=== PATIENT | female | born 2000 | race Caucasian/White ===

== ENCOUNTER 2021-01-29 09:48 | Emergency (ER) | payer OTHER ==
[~2021-01-29] VITALS: Ht 162.6 cm; Wt 70.0 kg
--- NOTE | 2021-01-29 10:29 | REP ---
INDICATION: rib pain COMPARISON: None. TECHNIQUE: PA/Lateral FINDINGS: Lungs: Clear, no infiltrate. Heart: Normal in size. Mediastinum: Mediastinal silhouette unremarkable. Pleural angles: Unremarkable.. Bones and soft tissues: Unremarkable. IMPRESSION: No acute pulmonary disease. <Electronically signed by Mark Prabhakar > 01/29/21 1020
[2021-01-29] MEDS ORDERED: GI COCKTAIL 50ML BTL(HYOSCYAMINE/MAALOX/LIDOCAINE VISCOUS)(1:3:1) PO ONE (11:35)
[2021-01-29 12:27] VITALS: O2SAT 100
[2021-01-29 12:29] LABS: BASO # 0.1 10^3/uL (0.0-0.2); BASO % 0.9 % (0.0-1.0); EOS # 0.3 10^3/uL (0.0-0.5); EOS % 3.6 % (0.0-3.0); HEMATOCRIT 37.6 % (36.0-47.0); HEMOGLOBIN 11.9 g/dl (12.0-15.5); LYMPH # 1.9 10^3/uL (1.5-5.0); LYMPH % 26.3 % (24.0-44.0); MEAN CORPUSCULAR HEMOGLOBIN 27.7 pg (27.0-33.0); MEAN CORPUSCULAR HGB CONC 31.6 g/dl (32.0-36.5); MEAN CORPUSCULAR VOLUME 87.4 fl (80.0-96.0); MONO # 0.6 10^3/uL (0.0-0.8); NEUTROPHILS # 4.3 10^3/uL (1.5-8.5); NEUTROPHILS % 60.9 % (36.0-66.0); PLATELET COUNT, AUTOMATED 281 10^3/uL (150-450)
--- NOTE | 2021-01-29 12:47 | REP ---
INDICATION: RUQ TTP, positive Bello sign. COMPARISON: None. TECHNIQUE: Real-time sonographic evaluation of right upper quadrant performed. FINDINGS: The gallbladder demonstrates no evidence of intraluminal sludge or calculi, wall thickening or pericholecystic fluid. There is no intrahepatic or extrahepatic biliary dilatation, common bile duct measures 3 mm in maximum diameter. The liver demonstrates homogeneous echotexture with no gross mass. The pancreas demonstrates homogeneous echotexture with no gross mass. The right kidney demonstrates no hydronephrosis, with a normal size of 11.1 cm in length. No free fluid is seen. IMPRESSION: Negative right upper quadrant ultrasound. <Electronically signed by Mark Prabhakar > 01/29/21 [id number]
[2021-01-29 13:00] LABS: ALBUMIN 4.2 GM/DL (3.2-5.2); ALT/SGPT 14 U/L (12-78); BILIRUBIN,DIRECT 0.2 MG/DL (0.0-0.2); BILIRUBIN,TOTAL 0.6 MG/DL (0.2-1.0); CK-MB VALUE MASS < 1.0 NG/ML (<3.6); CPK CREATINE PHOSPHOKINASE 139 U/L (26-192); LIPASE 44 U/L (73-393); MB/CK RELATIVE INDEX 0.72 (< OR =4); TOTAL PROTEIN 7.1 GM/DL (6.4-8.2); TROPONIN I < 0.02 NG/ML (< 0.10)
[2021-01-29 15:31] LABS: CK-MB VALUE MASS < 1.0 NG/ML (<3.6); CPK CREATINE PHOSPHOKINASE 123 U/L (26-192); MB/CK RELATIVE INDEX 0.81 (< OR =4); TROPONIN I < 0.02 NG/ML (< 0.10)
[2021-01-29] MEDS ORDERED: MEDR4PAK PO (15:40)
[2021-01-29 15:53] VITALS: BP 153/69
--- NOTE | 2021-01-29 20:04 | ECGEPIP ---
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
== END 2021-01-29 15:56 | disposition home or self-care (01) ==
LOC: M ED 09:48
DX: R07.89 Other chest pain (principal)

== ENCOUNTER 2021-04-20 17:38 | Emergency (ER) | payer OTHER ==
[~2021-04-20] VITALS: Ht 162.6 cm; Wt 74.9 kg
[~2021-04-20 17:38] MED LIST: MEDR4PAK PO
[2021-04-20 18:52] LABS: HEMATOCRIT 39.8 % (36.0-47.0); MEAN CORPUSCULAR HEMOGLOBIN 28.8 pg (27.0-33.0); MEAN CORPUSCULAR HGB CONC 32.7 g/dl (32.0-36.5); MEAN CORPUSCULAR VOLUME 88.1 fl (80.0-96.0); PLATELET COUNT, AUTOMATED 321 10^3/uL (150-450); RED BLOOD COUNT 4.52 10^6/uL (4.00-5.40); WHITE BLOOD COUNT 9.4 10^3/uL (4.0-10.0)
[2021-04-20 19:14] LABS: AMPHETAMINES LEVEL URINE NEGATIVE (NEGATIVE); BARBITURATES URINE NEGATIVE (NEGATIVE); BENZODIAZEPINES URINE NEGATIVE (NEGATIVE); CANNABINOIDS URINE NEGATIVE (NEGATIVE); COCAINE METABOLITE URINE NEGATIVE (NEGATIVE); HCG, SERUM QUALITATIVE NEGATIVE (NEGATIVE); METHADONE URINE NEGATIVE (NEGATIVE); OPIATES URINE NEGATIVE (NEGATIVE); PHENCYCLIDINE URINE NEGATIVE (NEGATIVE)
[2021-04-20 19:26] LABS: ACETAMINOPHEN LEVEL < 2.0 UG/ML (10.0-30.0); ALBUMIN 4.1 GM/DL (3.2-5.2); ALT/SGPT 14 U/L (12-78); BILIRUBIN,DIRECT 0.2 MG/DL (0.0-0.2); BILIRUBIN,TOTAL 0.6 MG/DL (0.2-1.0); BLOOD UREA NITROGEN 12 MG/DL (7-18); CALCIUM LEVEL 9.4 MG/DL (8.5-10.1); CARBON DIOXIDE LEVEL 29 MEQ/L (21-32); CHLORIDE LEVEL 108 MEQ/L (98-107); CREATININE FOR GFR 0.72 MG/DL (0.55-1.30); ETHYL ALCOHOL (ETHANOL) < 0.003 % (0.000-0.010); GLUCOSE, FASTING 93 MG/DL (70-100); POTASSIUM SERUM 4.9 MEQ/L (3.5-5.1); SALICYLATE LEVEL < 1.7 MG/DL (5.0-30.0); SODIUM LEVEL 141 MEQ/L (136-145); THYROID STIMULATING HORMONE 0.615 uIU/ML (0.463-3.98); TOTAL PROTEIN 7.3 GM/DL (6.4-8.2)
[2021-04-20 20:44] LABS: RSV AMPLIFICATION NEGATIVE (NEGATIVE)
[2021-04-20] MEDS ORDERED: HOME MED LIST COMPLETE! XX SCH (22:25)
--- NOTE | 2021-04-21 00:08 | MHIPNPDOC ---
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 Communicated with PSA meets criteria for admission at this time. Vital Signs Vital Signs Date Time Temp Pulse Resp B/P (MAP) Pulse Ox O2 Delivery O2 Flow Rate FiO2 04/20/21 20:22 97.0 65 14 122/65 (84) 99 Room Air Laboratory Data 24H Labs Laboratory Tests 2 04/20/21 18:31: Nucleated Red Blood Cells % (auto) 0.0, Anion Gap 4L, Calcium Level 9.4, Total Bilirubin 0.6, Direct Bilirubin 0.2, Aspartate Amino Transf (AST/SGOT) 8, Alanine Aminotransferase (ALT/SGPT) 14, Alkaline Phosphatase 80, Total Protein 7.3, Albumin 4.1, Albumin/Globulin Ratio 1.3, Thyroid Stimulating Hormone (TSH) 0.615, Human Chorionic Gonadotropin, Qual NEGATIVE, Salicylates Level < 1.7L, Urine Opiates Screen NEGATIVE, Urine Methadone Screen NEGATIVE, Acetaminophen Level < 2.0L, Urine Barbiturates Screen NEGATIVE, Urine Phencyclidine Screen NEGATIVE, Urine Amphetamines Screen NEGATIVE, Urine Benzodiazepines Screen NEGATIVE, Urine Cocaine Metabolite Screen NEGATIVE, Urine Cannabinoids Screen NEGATIVE, Ethyl Alcohol Level < 0.003 04/20/21 19:52: Coronavirus (COVID-19)(PCR) NEGATIVE, Influenza Type A (RT-PCR) NEGATIVE, Influenza Type B (RT-PCR) NEGATIVE, Respiratory Syncytial Virus (PCR) NEGATIVE CBC/BMP Laboratory Tests 04/20/21 18:31 Current Medications Current Medications Medications (Trade) Dose Ordered Sig/Kanu Route PRN Reason Start Time Stop Time Status Last Admin Dose Admin Home Med (Home Med List Complete!) ASDIRECTED XX 04/20/21 22:25 04/20/21 22:26 DC Allergies Coded Allergies: No Known Allergies (Unverified , 01/29/21) KINSEY JIM MD Apr 21, 2021 00:08
--- NOTE | 2021-04-21 05:09 | ECGEPIP ---
[facility] - ED Test Date: 2021-04-20 Pat Name: MARIA GUADALUPE BONILLA Department: Room: - Gender: Female Clipper Machine: : 2000 Requested By: CADY ALMANZAR Order Number: [id number] Reading MD: Lonnie Dobbs Measurements Intervals [place] Rate: 72 P: 5 GA: 138 QRS: 38 QRSD: 84 T: 25 QT: 384 QTc: 420 Interpretive Statements Normal sinus rhythm POOR R WAVE PROGRESSION NONSPECIFIC T WAVE ABNORMALITY(S) SIMILAR TO 01/29/21 Electronically Signed on 04-21-2021 5:09:26 EDT by Lonnie Dobbs
[2021-04-21 09:31] VITALS: BP 159/89
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
== END 2021-04-21 09:32 | disposition home or self-care (01) ==
LOC: M ED 17:38
DX: F32.9 Major depressive disorder, single episode, unspecified (principal)

== ENCOUNTER 2021-05-03 08:24 | Emergency (ER) | payer OTHER ==
[~2021-05-03] VITALS: Ht 162.6 cm; Wt 71.2 kg
[2021-05-03] MEDS ORDERED: NITR1CAP11 PO (09:32)
[2021-05-03 09:43] VITALS: BP 134/78
== END 2021-05-03 09:50 | disposition home or self-care (01) ==
LOC: M ED 08:24
DX: N39.0 Urinary tract infection, site not specified (principal)

== ENCOUNTER 2021-05-24 12:29 | Emergency (ER) | payer OTHER ==
[~2021-05-24] VITALS: Ht 162.6 cm; Wt 73.1 kg
[~2021-05-24 12:29] MED LIST changes: +NITR1CAP11 PO
[2021-05-24 13:14] LABS: BASO % 0.4 % (0.0-1.0); EOS # 0.1 10^3/uL (0.0-0.5); EOS % 0.8 % (0.0-3.0); HEMATOCRIT 43.6 % (36.0-47.0); LYMPH # 1.5 10^3/uL (1.5-5.0); MEAN CORPUSCULAR HGB CONC 32.1 g/dl (32.0-36.5); MEAN CORPUSCULAR VOLUME 90.5 fl (80.0-96.0); MONO # 0.7 10^3/uL (0.0-0.8); MONO % 7.8 % (2.0-8.0); NEUTROPHILS # 6.9 10^3/uL (1.5-8.5); NEUTROPHILS % 74.6 % (36.0-66.0); PLATELET COUNT, AUTOMATED 337 10^3/uL (150-450); RED BLOOD COUNT 4.82 10^6/uL (4.00-5.40); WHITE BLOOD COUNT 9.2 10^3/uL (4.0-10.0)
[2021-05-24 13:51] LABS: ALBUMIN 4.7 GM/DL (3.2-5.2); BILIRUBIN,DIRECT 0.2 MG/DL (0.0-0.2); BILIRUBIN,TOTAL 0.9 MG/DL (0.2-1.0); TOTAL PROTEIN 7.6 GM/DL (6.4-8.2)
--- NOTE | 2021-05-24 14:09 | REP ---
INDICATION: right lower quadrant and pelvic pain. COMPARISON: None. TECHNIQUE: Standard helical technique without contrast stone protocol utilized due to right-sided pain FINDINGS: Lung bases are clear Limited evaluation of the solid intra-abdominal organs and gallbladder show no abnormalities. Limited evaluation of the pancreas, adrenal glands, and kidneys show no gross abnormalities. Limited evaluation of the abdominal aorta and para-aortic regions show no gross abnormality. There is no free fluid or free air. The bowel loops and the mesenteries are within normal limits. In the right adnexa there is a mixed density 3.1 cm sized structure. The osseous structures are within normal limits. IMPRESSION: Likely hemorrhagic right ovarian cyst as described above. <Electronically signed by Lul Wadsworth > 05/24/21 [id number]
[2021-05-24] MEDS ORDERED: IBUP-1022 PO (14:26)
[2021-05-24 14:36] VITALS: BP 159/87
== END 2021-05-24 14:38 | disposition home or self-care (01) ==
LOC: M ED 12:29
DX: N83.201 Unspecified ovarian cyst, right side (principal)

== ENCOUNTER 2021-06-29 12:15 | Emergency (ER) | payer OTHER ==
[~2021-06-29] VITALS: Ht 162.6 cm; Wt 78.5 kg
[~2021-06-29 12:15] MED LIST changes: +IBUP-1022 PO
[2021-06-29 12:16] VITALS: BP 143/84
== END 2021-06-29 16:45 | disposition left against medical advice (07) ==
LOC: M ED 12:15
DX: Z53.21 Procedure and treatment not carried out due to patient leaving prior to being seen by health care provider (principal)

== ENCOUNTER 2021-06-30 10:29 | Emergency (ER) | payer OTHER ==
[~2021-06-30] VITALS: Ht 162.6 cm; Wt 75.9 kg
--- OUTSIDE RECORDS SUMMARY | 2021-06-30 11:37 | CCD ---
Author Author [facility] Organization [facility] Address Unknown Phone Unavailable Care Team Providers Care Chipping Machine Operator Name Role Phone Green MEDIA MANAGER MEDIA MANAGER, Melissa Unavailable Unavailable Green MEDIA MANAGER MEDIA MANAGER, Melissa Unavailable Unavailable Green MEDIA MANAGER MEDIA MANAGER, Melissa Unavailable Unavailable Green MEDIA MANAGER MEDIA MANAGER, Melissa Unavailable Unavailable Green MEDIA MANAGER MEDIA MANAGER, Melissa Unavailable Unavailable Dwello PA PA, Inez Unavailable Unavailable Dwello PA PA, Inez Unavailable Unavailable Dwello PA PA, Inez Unavailable Unavailable Dwello PA PA, Inez Unavailable Unavailable Dwello PA PA, Inez Unavailable Unavailable Dwello PA PA, Inez Unavailable Unavailable Dwello PA PA, Inez Unavailable Unavailable Re-disclosure Warning The records that you are about to access may contain information from federally-assisted alcohol or drug abuse programs. If such information is present, then the following federally mandated warning applies: This information has been disclosed to you from records protected by federal confidentiality rules (42 CFR part 2). The federal rules prohibit you from making any further disclosure of this information unless further disclosure is expressly permitted by the written consent of the person to whom it pertains or as otherwise permitted by 42 CFR part 2. A general authorization for the release of medical or other information is NOT sufficient for this purpose. The Federal rules restrict any use of the information to criminally investigate or prosecute any alcohol or drug abuse patient.The records that you are about to access may contain highly sensitive health information, the redisclosure of which is protected by Article 27-F of the [place] State Public Health law. If you continue you may have access to information: Regarding HIV / AIDS; Provided by facilities licensed or operated by the [facility] Office of Mental Health; or Provided by the [facility] Office for People With Developmental Disabilities. If such information is present, then the following [facility] mandated warning applies: This information has been disclosed to you from confidential records which are protected by state law. State law prohibits you from making any further disclosure of this information without the specific written consent of the person to whom it pertains, or as otherwise permitted by law. Any unauthorized further disclosure in violation of state law may result in a fine or intermediate sentence or both. A general authorization for the release of medical or other information is NOT sufficient authorization for further disc losure. Encounters Encounter Providers Location Date Indications Data Source(s ) PREV VISIT, EST, AGE 18-39Outpatient Attender: Melissa Perez 06/19/2021 07:30:00 AM EDT - 06/19/2021 07:30:00 AM ED T Pelvic and perineal painOther sex counselingHuman immunodeficiency virus [HIV] counselingEncounter for screening for human immunodeficiency virusEncntr screen for infections w sexl mode of transmissEncntr for pulp roller exam (general) (routine) w abnormal findingsEncounter for oth general cnsl and advice on contraceptionEncounter for surveillance of injectable contraceptiveEncounter for test, result negative [facility] ([facility]) Pelvic and perineal pain Other sex counseling Human immunodeficiency virus [HIV] couns eling Encounter for screening for human immuno deficiency virus Encntr screen for infections w sexl mode of transmiss Encntr for pulp roller exam (general) (routine) w abnormal findings Encounter for oth general cnsl and advic e on contraception Encounter for surveillance of injectable contraceptive Encounter for test, result neg ative OutpatientOFFICE VISIT, NEW Attender: Inez bernalrtshine 05/28/2021 10:45:00 AM EDT - 05/28/2021 10:45:00 AM EDT Other sex counselingEncounter for initial prescription of injectable contracepEncounter for oth general cnsl and advice on contraceptionEncounter for test, result negative [facility] ([facility]) Other sex counseling Encounter for initial prescription of in jectable contracep Encounter for oth general cnsl and advic e on contraception Encounter for test, result neg ative Medications Medication Brand Name Start Date Product Form Dose Route Admi nistrative Instructions Pharmacy Instructions Status Indications Reaction Description Data Source(s) medroxyprogesterone acetate 150 MG/ML In jectable Suspension medroxyprogesterone 150 mg/mL intramuscular suspension medroxyprogesterone 150 mg/mL intramuscu lar suspension 05/28/2021 12:00:00 AM EDT active IM every 10-13 weeks [facility] ([facility]) Insurance Providers Payer name Policy type / Coverage type Policy ID Covered green party ID Covered green party's relationship to hinojosa Policy Hinojosa Plan Information [facility] [employer] [id number] Problems, Conditions, and Diagnoses No Information Surgeries/Procedures Procedure Description Date Indications Data Source(s) CVR Immigration Patrol Inspector.Svc. STI / H 06/19/2021 12:00:00 AM EDT - 06/19/2021 12:00:00 AM EDT [facility] ([facility]) CVR Immigration Patrol Inspector.Svc. Contraceptive 06/19/2021 12 :00:00 AM EDT - 06/19/2021 12:00:00 AM EDT [facility] ([facility]) CVR Med.Svc. Height/Weight 06/19/2021 12 :00:00 AM EDT - 06/19/2021 12:00:00 AM EDT [facility] ([facility]) CVR Blood Pressure 06/19/2021 12:00:00 AM EDT - 2020 12:00:00 AM EDT [facility] ([facility]) CVR Med.Svc. Other 06/19/2021 12:00:00 AM EDT - 2020 12:00:00 AM EDT [facility] ([facility]) SYPHILLIS BLOOD SEROLOGY, QUALITATIVE 12:00:00 AM EDT - 06/19/2021 12:00:00 AM EDT [facility] ([facility]) HTLV/HIV SERUM TEST 06/19/2021 12:00:00 AM EDT - 06/19 12:00:00 AM EDT [facility] ([facility]) N.GONORRHOEAE, URINE 06/19/2021 12:00:00 AM EDT - 06/19/2021 12:00:00 AM EDT [facility] ([facility]) CHYLMD TRACH, URINE 06/19/2021 12:00:00 AM EDT - 06/19 12:00:00 AM EDT [facility] ([facility]) PREV VISIT, EST, AGE 18-39 06/19/2021 12 :00:00 AM EDT - 06/19/2021 12:00:00 AM EDT [facility] ([facility]) URINE TEST 06/19/2021 12:00:00 AM EDT - 06/19/2021 12:00:00 AM EDT [facility] ([facility]) NURSE ONLY INJ. RN/CAN FILLING ROOM SWEEPER Only 05/28/2021 1 2:00:00 AM EDT - 05/28/2021 12:00:00 AM EDT [facility] ([facility]) Depo/Medroxyprogesterone Inj. 150 Mg Nurse/CA 05/28/2021 12:00:00 AM EDT - 05/28/2021 12:00:00 AM EDT [facility] ([facility]) CVR Immigration Patrol Inspector.Svc. STI / H 05/28/2021 12:00:00 AM EDT - 05/28/2021 12:00:00 AM EDT [facility] ([facility]) CVR Immigration Patrol Inspector.Svc. Contraceptive 05/28/2021 12 :00:00 AM EDT - 05/28/2021 12:00:00 AM EDT [facility] ([facility]) CVR Med.Svc. Method Initiation 12:00:00 AM EDT - 05/28/2021 12:00:00 AM EDT [facility] ([facility]) CVR Med.Svc. Height/Weight 05/28/2021 12 :00:00 AM EDT - 05/28/2021 12:00:00 AM EDT [facility] ([facility]) CVR Blood Pressure 05/28/2021 12:00:00 AM EDT - 2020 12:00:00 AM EDT [facility] ([facility]) URINE TEST 05/28/2021 12:00:00 AM EDT - 05/28/2021 12:00:00 AM EDT [facility] ([facility]) OFFICE VISIT, NEW 05/28/2021 12:00:00 AM EDT - 021 12:00:00 AM EDT [facility] ([facility]) Results ID Date Data Source [id number] 06/19/2021 07:46:51 AM EDT [facility] ([facility]) Name Value Range Interpretation Code Description Data Edith rce(s) Supporting Document(s) NegativeLot: [id number] High Sensiti vity Urine Test [facility] ([facility]) ID Date Data Source [id number] 05/28/2021 11:35:50 AM EDT [facility] ([facility]) Name Value Range Interpretation Code Description Data Edith rce(s) Supporting Document(s) NegativeLot: [id number]: 10/26/2022 High Sensitivity Urine Test [facility] ([facility]) ID Date Data Source [id number] 04/20/2021 07:52:00 PM EDT [facility] Name Value Range Interpretation Code Description Data Edith rce(s) Supporting Document(s) SARS coronavirus 2 RNA [Presence] in Res piratory specimen by ALLYSON with probe detection NEGATIVE [facility] This lab was ordered by [facility] a nd reported by [facility]. ID Date Data Source [id number] 04/14/2021 12:00:00 AM EDT [facility] Name Value Range Interpretation Code Description Data Edith rce(s) Supporting Document(s) SARS-CoV2 Rapid Antigen Negative [facility] lab [facility] and reported by [facility]. Procedure Social History Code Duration Value Status Description Data Source(s ) Smoking 06/19/2021 12:00:00 AM EDT Never smoker completed Never s moker [facility] ([facility]) 05/28/2021 12:00:00 AM EDT Current non-smoker completed C urrent non-smoker [facility] ([facility]) Vital Signs ID Date Data Source UNK Name Value Range Interpretation Code Description Data Source(s) Body height 162.56 cm 162.56 cm [facility]) Diastolic blood pressure 80 mm[Hg] 80 mm[Hg] [facility] ([facility]) Systolic blood pressure 129 mm[Hg] 129 mm[Hg] N [facility] ([facility]) Body height 162.56 cm 162.56 cm [facility]) Body weight 75.750 kg 75.750 kg [facility] ([facility]) Systolic blood pressure 130 mm[Hg] 130 mm[Hg] N [facility] ([facility]) Diastolic blood pressure 79 mm[Hg] 79 mm[Hg] [facility] ([facility]) Body mass index (BMI) [Ratio] 28.67 kg/m2 Overweight 28.67 kg/m2 [facility] ([facility]) Patient Treatment Plan of Care Planned Activity Planned Date Details Description Data Source (s) medroxyprogesterone acetate 150 MG/ML Injectable Suspe nsion 05/28/2021 12:00:00 AM EDT [facility]
--- OUTSIDE RECORDS SUMMARY | 2021-06-30 11:37 | CCD | Continuity of Care Document ---
Author Author [facility] Organization [facility] Address Unknown Phone Unavailable Care Team Providers Care City Plant Supervisor Name Role Phone Dwello Inez DUFFY Unavailable Unavailable Allergies, Adverse Reactions, Alerts Substance Reaction Status Criticality No Known Allergies Active No Information Medications Medication Instructions Dosage Effective Dates (start - stop) Sta tus Comments medroxyprogesterone 150 mg/mL intramuscular suspension IM every 10-13 weeks - Active Problems Condition Effective Dates (start - stop) Clinical Status C omments Encounter for test, result negative Encounter for ot general cnsl and advice on contraception Encounter for initial prescription of injectable contracep Other sex counseling Procedures Procedure Date OFFICE VISIT, NEW URINE TEST CVR Blood Pressure CVR Med.Svc. Height/Weight CVR Med.Svc. Method Initiation CVR Pet Counselor.Svc. Contraceptive CVR Pet Counselor.Svc. STI / H Depo/Medroxyprogesterone Inj. 150 Mg Nurse/[place] 021 NURSE ONLY INJ. RN/INDUSTRIAL HIRE SALES ASSISTANT Only Results Test Name Date and Time Measure Units Reference Range Abnormal Flag St atus Comments Panel Description: High Sensitivity Urine Test Fi nal High Sensitivity Urine Test 11:35:50 N egativeLot: [id number]: 10/26/2022 Final Advance Directives Directive Yes / No Effective Date File Name No Information Encounters Encounter Description Practice Location Reason(s) For Visit Diagnose s Date Provider Providers Copied on Encounter OFFICE VISIT, NEW [facility], [address] [place] [address], [id number], tel:[phone] [facility] [place] Test ( ief complaint) Encounter for test, result neg ativeEncounter for oth general cnsl and advice on contraceptionEncounter for initial prescription of injectable contracepOther sex counseling Dwellkalli Inez watt. [address] [place] [address], [id number], . tel:[phone] Referring Provider: Inez Higginbotham, [address] [place] [address], [id number]. tel:[phone] Family History Family Member Diagnosis Age At Onset No Information Immunizations Vaccine Date Status Comments No Information Payers Payer name Insurance type Covered republican ID Authorization(s ) [facility] [employer] CI [id number] FPBP PRESUMPTIVE ELIGIBILITY [facility] Social History Type Description Quantity Date Captured Comments Alcohol Use Details Unknown Caffeine Use Details Unknown Tobacco Use Status Current non-smoker Smoking Status Never smoker Non-Smoking Tobacco Use Details : No Details Available : No Details Available Sex Female Vital Signs Date / Time: Height Weight BMI Pulse Rate Blood Pressure Temperatu re Respiratory Rate Body Surface Area Head Circumference BMI percentile Pulse Ox In haled Ox 10:59 AM 64.00 in 167.00 lbs 28.67 kg/meter(2) 130/7 9 mm[Hg] Chief Complaint And Reason For Visit Most recent encounter only, dated '05/28/2021 10:45'. Test (chief complaint) Reason For Referral Reason For Referral No Information Plan Of Treatment Date Type Action Status Appointment Barbie Ca BOOKED History Of Present Illness Encounter Date Complaint History Of Present I llness No Information Functional Status Date Functional Assessment No Information Medications Administered Medication Instructions Dosage Effective Dates (start - stop) Sta tus Comments No Information Instructions Date Instruction Additional Informati on No Information Assessments Type Assessment Date assessment Encounter for test, result neg ative assessment Encounter for oth general cnsl and advic e on contraception Sep-30-2021 assessment Encounter for initial prescription of in jectable contracep assessment Other sex counseling Goals Health Concern Goal Type Priority Status Date No Information Medical Equipment Description Device [place] Device Identifier Effective Aashish es (start - stop) Status No Information Mental Status Date Cognitive Assessment Orientation - Oriented to ti me, place, person, situation.Normal Orientation Health Concerns Observation Date No Information Concern Status Date No Information Physical Examination Exam Findings Details Neurological Normal Level of consciousne ss - Normal. Orientation - Normal. Psychiatric Normal Orientation - [place] ed to time, place, person & situation.
--- OUTSIDE RECORDS SUMMARY | 2021-06-30 11:37 | CCD | Continuity of Care Document ---
Author Author [facility] Organization [facility] Address Unknown Phone Unavailable Care Team Providers Care Lumber Grader Name Role Phone Pardeep CLERICAL WAREHOUSEMAN, Melissa Montalvo Unavailable Unavailable Allergies, Adverse Reactions, Alerts Substance Reaction Status Criticality No Known Allergies Active No Information Medications Medication Instructions Dosage Effective Dates (start - stop) Sta tus Comments medroxyprogesterone 150 mg/mL intramuscular suspension IM every 10-13 weeks - Active Problems Condition Effective Dates (start - stop) Clinical Status C omments Encounter for test, result negative Encounter for surveillance of injectable contraceptive Encounter for oth general cnsl and advice on contraception 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 Other CVR Blood Pressure CVR Med.Svc. Height/Weight CVR Journey Lineman.Svc. Contraceptive CVR Journey Lineman.Svc. STI / H Results Test Name Date and Time Measure Units Reference Range Abnormal Flag St atus Comments Panel Description: High Sensitivity Urine Test Fi nal High Sensitivity Urine Test 07:46:51 N egativeLot: [id number] Final Advance Directives Directive Yes / No Effective Date File Name No Information Encounters Encounter Description Practice Location Reason(s) For Visit Diagnose s Date Provider Providers Copied on Encounter PREV VISIT, EST, AGE 18-[address] [facility] [address] [place] [address], [id number], tel:[phone] [facility] Prevent ative Visit (chief complaint) Encounter for test, result neg ativeEncounter for surveillance of injectable contraceptiveEncounter for oth general cnsl and advice on contraceptionEncntr for base wad operator adjuster exam (general) (routine) w abnormal findingsEncntr screen for infections w sexl mode of transmissEncounter for screening for human immunodeficiency virusHuman immunodeficiency virus [HIV] counselingOther sex counselingPelvic and perineal pain Pardeep Montalvo. [address] [place] [address], [id number], [place]. tel:[phone] Referring Provider: Melissa Roberto, [address] [place] [address], [id number]. tel:[phone] [facility], [address] [place] [address], [id number], [place] tel:[phone] [facility] Encounter for pregn jerel test, result negativeEncounter for oth general cnsl and advice on contraceptionEncounter for initial prescription of injectable contracepOther sex counseling Anahy Salgado. [address] [place] [address], [id number], [place]. tel:[phone] Referring Provider: Inez Higginbotham, [address] [place] [address], [id number]. tel:[phone] Family History Family Member Diagnosis Age At Onset 1st degree relative No hx of osteoporosis 1st degree relative No hx of venous thromboembolism 1st degree relative No hx of cancer of breast, colon, endome trium or ovary 1st degree relative No hx of coronary heart disease (female <65, male <55) Immunizations Vaccine Date Status Comments No Information Payers Payer name Insurance type Covered republican ID Authorization(s ) Gareth Buchanan [id number] FPBP PRESUMPTIVE ELIGIBILITY [facility] Social History Type Description Quantity Date Captured Comments Alcohol Use Details Unknown Caffeine Use Details Unknown Tobacco Use Status No Information Smoking Status Never smoker Sex Female Vital Signs Date / Time: Height Weight BMI Pulse Rate Blood Pressure Temperatu re Respiratory Rate Body Surface Area Head Circumference BMI percentile Pulse Ox In haled Ox 7:33 AM 64.00 in 129/80 mm[Hg] Chief Complaint And Reason For Visit Most recent encounter only, dated 06/19/2021 07:30'. 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) w abnormal findings assessment Encntr screen for infections w sexl mode of transmiss assessment Encounter for screening for human immuno deficiency virus assessment Human immunodeficiency virus [HIV] couns eling assessment Other sex counseling assessment Pelvic and perineal pain Goals Health Concern Goal Type Priority Status Date No Information Medical Equipment Description Device [employer] [place] Device Identifier Effective Aashish es (start - stop) Status No Information Mental Status Date Cognitive Assessment No Information Health Concerns Observation Date No Information Concern Status Date No Information Physical Examination Exam Findings Details Abdomen Normal Inspection - Normal. Anterior palpation - Normal. No abdominal tenderness. No hepatic enlargement. No splenic enlargement. No palpable mass. Breast * Breast exam deferred . BSA was discussed. Breast Comments due to age and guide lines. Cardiovascular Normal Heart rate - Regular rate. Rhythm - Regular. Heart sounds - Normal S1, Normal S2. Murmurs - None. Extremities - No edema. Extremity Normal No Cyanosis. No Jigar a. Neck Exam Normal Inspection - Normal. Palpation - Normal. Thyroid gland - Normal. Cervical lymph nodes - Normal. Neurological Normal Level of consciousne ss - Normal. Orientation - Normal. Respiratory Normal Inspection - Normal. Auscultation - Normal. Effort - Normal. Skin Normal Inspection - Normal. Palpation/texture - Normal.
[2021-06-30] MEDS ORDERED: NAPROXEN 250 MG TAB PO ONE (13:05)
[2021-06-30] MEDS ORDERED: LIDOCAINE 4% CREAM 5GM (LMX4) TOP ONE (13:05)
--- NOTE | 2021-06-30 14:03 | REP ---
INDICATION: FB in foot dorsal 1st MT. COMPARISON: None. TECHNIQUE: Two views assess for radiopaque foreign body in the plantar surface FINDINGS: The joint spaces are symmetric and relatively well maintained. There is no evidence of acute fracture or destructive osseous lesion. There is a type 2 os naviculare. There is no evidence of a radiopaque foreign body. A foreign substance has been applied to the ball of the foot which is causing artifact. IMPRESSION: Negative. <Electronically signed by Lul Wadsworth > 06/30/21 [id number]
--- NOTE | 2021-06-30 14:09 | REP ---
INDICATION: RLQ abd pain, known cyst, worsening pain. COMPARISON: CT abdomen pelvis without 05/24/2021 TECHNIQUE: Both transabdominal and endovaginal probes with ovarian duplex doppler interrogation. FINDINGS: Transabdominal images show the bladder 5.4 x 4.8 x 7.8 cm. Uterus is retroverted and measures 5.9 x 2.6 x 4.2 cm. On EV probe, the endometrial stripe is centrally located and has a thickness of 2 mm. No fluid in the endometrial cavity or endocervical canal. No mass or contour abnormality involving the uterus. No free fluid in the cul-de-sac. The right ovary is 4.3 x 2.9 x 3.4 cm. It has a 2.7 x 2.6 x 2.3 cm anechoic region without color flow within it no layered debris. Doppler tracing shows resistive index 0.41 on the right side. The left ovary is 2.7 x 1.3 x 1.8 cm without solid or cystic mass we are unable to get a satisfactory arterial Doppler tracing but there was excellent venous flow on color imaging. There is no fluid adjacent to either ovary. IMPRESSION: 1. 2.7 x 2.6 cm right adnexal simple cyst without adjacent pelvic free fluid or other pelvic mass. The left ovary normal. There is normal Doppler blood flow to that right ovary. 2. Uterus retroverted with no mass or contour abnormality. Endometrial stripe thickness of 2 mm is normal. <Electronically signed by Alexis Guerra > 06/30/21 0125
[2021-06-30 15:20] VITALS: BP 142/72
== END 2021-06-30 15:22 | disposition home or self-care (01) ==
LOC: M ED 10:29
DX: N83.291 Other ovarian cyst, right side (principal); M79.671 Pain in right foot

== ENCOUNTER → 2022-01-18 | Outpatient (CLI) | payer OTHER ==
[2022-01-18 19:55] LABS: BASO # 0.1 10^3/uL (0.0-0.2); BASO % 0.7 % (0.0-1.0); EOS # 0.2 10^3/uL (0.0-0.5); EOS % 1.8 % (0.0-3.0); HEMATOCRIT 44.1 % (36.0-47.0); HEMOGLOBIN 14.3 g/dl (12.0-15.5); LYMPH # 1.6 10^3/uL (1.5-5.0); MEAN CORPUSCULAR HEMOGLOBIN 31.1 pg (27.0-33.0); MEAN CORPUSCULAR HGB CONC 32.4 g/dl (32.0-36.5); MEAN CORPUSCULAR VOLUME 95.9 fl (80.0-96.0); MONO # 0.8 10^3/uL (0.0-0.8); MONO % 9.3 % (2.0-8.0); NEUTROPHILS # 5.7 10^3/uL (1.5-8.5); NEUTROPHILS % 68.7 % (36.0-66.0); PLATELET COUNT, AUTOMATED 317 10^3/uL (150-450); WHITE BLOOD COUNT 8.3 10^3/uL (4.0-10.0)
[2022-01-18 20:13] LABS: ERYTHROCYTE SEDIMENTATION RATE 2 mm/hr (0-20)
[2022-01-18 20:23] LABS: ALBUMIN 4.4 GM/DL (3.2-5.2); ALT/SGPT 53 U/L (12-78); BILIRUBIN,TOTAL 0.8 MG/DL (0.2-1.0); BLOOD UREA NITROGEN 12 MG/DL (7-18); CALCIUM LEVEL 9.5 MG/DL (8.5-10.1); CARBON DIOXIDE LEVEL 29 MEQ/L (21-32); CHLORIDE LEVEL 106 MEQ/L (98-107); GLOMERULAR FILTRATION RATE > 60.0 (>60); GLUCOSE, FASTING 84 MG/DL (70-100); POTASSIUM SERUM 4.1 MEQ/L (3.5-5.1); SODIUM LEVEL 139 MEQ/L (136-145); TOTAL PROTEIN 7.4 GM/DL (6.4-8.2)
[2022-01-18 20:35] LABS: MONO REFLEX EBV VCA IgM POSITIVE (NEGATIVE)
== END ==
LOC: M WUC 15:21
PROVIDERS: ATTEND Physician Assistant
DX: M79.10 Myalgia, unspecified site (principal)

== ENCOUNTER → 2022-05-06 | Outpatient (CLI) | payer OTHER ==
[~2022-05-06] MED LIST changes: +ISOVUE-300 61% 5ML SYRINGE As Ordered ONE; +LIDOCAINE 1% MDV 20ML VIAL As Ordered ONE; +PROHANCE 279.3MG/ML 5ML VIAL As Ordered ONE
== END ==
LOC: M RADPRO 06:15
PROVIDERS: ATTEND Physician Assistant
DX: M75.31 Calcific tendinitis of right shoulder (principal)
CPT/HCPCS: 23350; 73223; 77002; A9576; Q9967

== ENCOUNTER → 2022-09-06 | Outpatient (CLI) | payer OTHER ==
[~2022-09-06] MED LIST changes: -ISOVUE-300 61% 5ML SYRINGE As Ordered ONE; -LIDOCAINE 1% MDV 20ML VIAL As Ordered ONE; -PROHANCE 279.3MG/ML 5ML VIAL As Ordered ONE
[2022-09-06 14:11] LABS: BASO # 0.1 10^3/uL (0.0-0.2); BASO % 0.8 % (0.0-1.0); EOS # 0.3 10^3/uL (0.0-0.5); EOS % 5.3 % (0.0-3.0); HEMOGLOBIN 14.6 g/dl (12.0-15.5); LYMPH # 1.2 10^3/uL (1.5-5.0); LYMPH % 20.5 % (24.0-44.0); MEAN CORPUSCULAR HEMOGLOBIN 32.9 pg (27.0-33.0); MEAN CORPUSCULAR HGB CONC 33.2 g/dl (32.0-36.5); MEAN CORPUSCULAR VOLUME 99.1 fl (80.0-96.0); MONO # 0.6 10^3/uL (0.0-0.8); MONO % 9.7 % (2.0-8.0); NEUTROPHILS # 3.8 10^3/uL (1.5-8.5); NEUTROPHILS % 63.2 % (36.0-66.0); PLATELET COUNT, AUTOMATED 331 10^3/uL (150-450); RED BLOOD COUNT 4.44 10^6/uL (4.00-5.40); WHITE BLOOD COUNT 6.1 10^3/uL (4.0-10.0)
[2022-09-06 14:51] LABS: LIPASE 28 U/L (12-53)
[2022-09-06 14:52] LABS: AMYLASE 51 U/L (30-118)
[2022-09-06 14:53] LABS: ALBUMIN 4.2 G/DL (3.2-5.2); ALKALINE PHOSPHATASE 85 U/L (46-116); ALT/SGPT 73 U/L (7.0-40); AST/SGOT 79 U/L (<34); BILIRUBIN,TOTAL 0.4 MG/DL (0.3-1.2); BLOOD UREA NITROGEN 12 MG/DL (9-23); CALCIUM LEVEL 8.7 MG/DL (8.5-10.1); CARBON DIOXIDE LEVEL 26 MMOL/L (20-31); CHLORIDE LEVEL 107 MMOL/L (98-107); CREATININE FOR GFR 0.72 MG/DL (0.55-1.30); GLOMERULAR FILTRATION RATE > 60.0 (>60); GLUCOSE, FASTING 82 MG/DL (60-100); POTASSIUM SERUM 4.3 MMOL/L (3.5-5.1); SODIUM LEVEL 142 MMOL/L (136-145); TOTAL PROTEIN 6.9 G/DL (5.7-8.2)
== END ==
LOC: M WUC 09:15
PROVIDERS: ATTEND Physician Assistant
DX: R11.10 Vomiting, unspecified (principal); R00.2 Palpitations

== ENCOUNTER 2023-08-26 10:51 | Emergency (ER) | payer OTHER ==
[~2023-08-26] VITALS: Ht 165.1 cm; Wt 75.2 kg
[2023-08-26 10:53] VITALS: BP 132/75; TEMP 98.5; O2SAT 97
== END 2023-08-26 12:54 | disposition home or self-care (01) ==
LOC: M ED 10:51
DX: S50.01XA Contusion of right elbow, initial encounter (principal); W19.XXXA Unspecified fall, initial encounter; Y92.009 Unspecified place in unspecified non-institutional (private) residence as the place of occurrence of the external cause; Y93.89 Activity, other specified; Y99.8 Other external cause status